=== PATIENT | male | born 1955 | race Caucasian/White ===

== ENCOUNTER → 2016-07-06 | Outpatient (CLI) | payer OTHER ==
[~2016-07-06] MED LIST: ASPIRIN EC81 M1 PO; ASPIRIN81 M2 PO; LIPITOR40 MG PO; MULTIPLE VITAMI1 T11 PO; PROPRANOLOL HCL60 M1 PO; SULFAMETHOXAZO1 EAC1 PO
--- NOTE | ~2016-07-06 | MR165 ---
[facility] A Service of [facility] & [facility] / [facility] RADIOLOGY TEXT RESULTS PATIENT: RYANNE MARSHALL LOCATION: [facility] : 51 UNIT #: [id number] AGE: [address]: William Camacho MD SEX: M ORDER DR: [id number] [place] [id number] O MR#: [id number] Acc #: [id number] NAME: RYANNE MARSHALL : 1955 SEX: M STUDY DATE/TIME: 07/06/2016 17:55 UNIT: [facility] ROOM: STUDY DESCRIPTION: MR Shoulder Wo Contrast Rt Attending Physician: William Camacho M.D. Referring Physician: William Camacho M.D. Ordering Physician: William Camacho M.D. Primary Care Physician: Generic Doctor Not In System MRI CENTER REPORT This report is preliminary unless electronic signature is present. EXAM MRI of the right shoulder without contrast HISTORY 61-year-old male injured shoulder swinging hammer 06/12/2016, also injured starting lawnmower, increasing shoulder pain, limited range of motion. COMPARISON Right shoulder films, 06/29/2016 FINDINGS Multiplanar multiecho imaging was performed of the right shoulder utilizing a high field magnet and dedicated protocol. Examination demonstrates developing glenohumeral joint osteoarthritis with a small amount of edema and developing marginal osteophytes inferior aspect of the humeral head. Small joint effusion. There is [id number] AC joint arthropathy with primarily superiorly directed acromial and clavicular osteophytes and capsular hypertrophy. Small amount of AC joint fluid. Degenerative cystic changes noted along the greater tuberosity at the cuff insertion. Moderate to severe supraspinatus tendinopathy with a 2.4 x 2.6 cm partial-thickness articular-sided tear within the midsubstance and distal insertion of the supraspinatus tendon. This is estimated to involve less than 50% of thickness of the tendon. Mild anterior infraspinatus tendinopathy. The teres minor tendon appears intact. The subscapularis demonstrates tendinopathy and a suspected partial tear of the cranial fibers of the subscapularis tendon. Extensive degeneration within the superior labrum with biceps tendinopathy involving both the intraarticular and extraarticular long tendon of the biceps. Circumferential degeneration of the labrum. Deltoid and extraarticular soft tissues appear normal. [facility]. [facility] A Service of [facility] RADIOLOGY TEXT RESULTS PATIENT: RYANNE MARSHALL LOCATION: [facility] : 51 UNIT #: [id number] AGE: [address]: William Camacho MD SEX: M ORDER DR: IMPRESSION 1. 2.4 x 2.6 cm partial thickness articular-sided tear supraspinatus tendon superimposed on moderate to severe supraspinatus tendinopathy. 2. Subscapularis tendinopathy with a suspected partial tear of the cranial fibers of the subscapularis tendon with mild subluxation of the long tendon of the biceps. 3. Glenohumeral joint synovitis and mild subacromial-subdeltoid bursitis. 4. Extensive degeneration of the labrum, particularly the superior labrum. No definite paralabral cyst. 5. Biceps tendinopathy. 6. AC joint arthropathy. Dictated by... Roberto Martínez M.D. THIS IS AN ELECTRONICALLY VERIFIED REPORT Roberto Martínez M.D. at 07/07/2016 1:57 PM Eren TD: 07/07/2016 09:37 JOB #: [id number] MRI CENTER REPORT Page 1 of 1
== END | disposition home or self-care (01) ==
LOC: SMRI 17:06
DX: M25.511 Pain in right shoulder (principal); D17.9 Benign lipomatous neoplasm, unspecified; R22.32 Localized swelling, mass and lump, left upper limb; S46.011A Strain of muscle(s) and tendon(s) of the rotator cuff of right shoulder, initial encounter; M75.81 Other shoulder lesions, right shoulder; M19.011 Primary osteoarthritis, right shoulder; M65.811 Other synovitis and tenosynovitis, right shoulder; M75.51 Bursitis of right shoulder
CPT/HCPCS: 73221